=== PATIENT | male | born 1965 | race Two or more races ===

== ENCOUNTER 2017-08-06 15:36 | Emergency (ER) | payer OTHER ==
--- NOTE | 2017-08-06 15:46 | ED Physician Chart ---
ED Chief Complaint/HPI - Patient Information Date Seen:: 08/06/17 Time Seen:: 15:40 Chief Complaint:: NEEDS G-TUBE REMOVED History of Present Illness:: This 51-year-old male was sent to the emergency department for removal of a G- tube since he has started taking fluids and food by mouth. His doctor was Dr. Montoya and he was sent with a request to remove the G-tube. Patient has no complaints of pain, respiratory distress, nausea, vomiting or dizziness. Allergies:: Allergies Allergy/AdvReac Type Severity Reaction Status Date / Time No Known Allergies Allergy Verified 08/06/17 15:38 Vitals:: Vital Signs - 8 hr 08/06/17 15:38 Temp 97.8 F HR 95 RR 15 BP 132/81 O2 Sat % 96 ED Past Medical History - Past Medical History Past Medical History: DM, Other (COLON CANCER with colostomy.) Social History: Single, Care Facility Employment:: No alcohol in the past 5 years. Non-smoker. No Illicit drugs. Family Medical History - Family Member Niece History Unknown: Yes ED Physical Exam - Physical Examination General/Constitutional: Awake, Well-developed, well-nourished, Alert, No distress, Non-toxic appearing Other Gen/Cons comments:: Needs cane or walker to ambulate. Head: Atraumatic Eyes: Lids, conjuctiva normal, PERRL, EOMI Skin: Nl inspection, No rash, No skin lesions, No ecchymosis, Well hydrated, No lymphadenopathy ENMT: TM canals nl, Nasal exam nl, Lips, teeth, gums nl, Oropharynx nl, Tonsils nl Neck: Nontender, Full ROM w/o pain, No JVD, No nuchal rigidity, No bruit, No mass, No stridor Respiratory: Nl effort/Exclusion, Clear to Auscultation, No Wheeze/Rhonchi/Rales Cardio Vascular: No murmur, gallop, rubs, NL S1 S2 Other Cardio Vascular comments:: Adequate distal pulses all 4 extremities. No peripheral edema. GI: No tenderness/rebounding/guarding, No organomegaly, Normal BS's, Nondistended, No McBurney tenderness Other GI comments:: Colostomy bag in the left abdominal region. G-tube in the left upper quadrant. The G-tube is a 20 Syriac with a mushroom button distally. Rectal examination was deferred at my discretion. : No CVA tenderness Extremities: No tenderness or effusion, Full ROM, No edema, Normal digits & nails (strength is mildly diminished in all 4 extremities but there are no focal deficits.) ED Labs/Radiology/EKG Results - Lab Results Results: No laboratory or radiographic studies were indicated. ED Assessment - Assessment General Assessment: CASE SUMMARY: She was referred to the emergency department for removal of a G- tube. The tube was removed using traction over the stoma. Patient tolerated the procedure well. Stoma was covered with a dressing prior to discharge. PROCEDURE: REMOVAL OF G-TUBE USING SIMPLE TRACTION. ED Septic Shock - . 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
== END 2017-08-06 19:58 ==
LOC: ER 15:36
DX: Z43.1 Encounter for attention to gastrostomy (principal); E10.8 Type 1 diabetes mellitus with unspecified complications; Z93.3 Colostomy status; Z85.038 Personal history of other malignant neoplasm of large intestine
CPT/HCPCS: Z7502